=== PATIENT | female | born 1990 | race Caucasian/White ===

== ENCOUNTER 2017-06-09 05:39 | Day surgery (SDC) | payer OTHER ==
[2017-06-09] MEDS ORDERED: MIDAZOLAM 1 MG/ML 2 ML INJ ×2 (07:48)
[2017-06-09] MEDS ORDERED: FENTAnyl 50 MCG/ML VIAL (07:49)
== END 2017-06-09 11:06 | disposition home or self-care (01) ==
LOC: GIL 05:39
DX: K21.9 Gastro-esophageal reflux disease without esophagitis (principal); K29.70 Gastritis, unspecified, without bleeding
CPT/HCPCS: 43239; 84703; 87081